=== PATIENT | male | born 1990 | race Caucasian/White ===

== ENCOUNTER 2018-02-03 18:45 | Emergency (ER) | payer BC ==
[2018-02-03] MEDS ORDERED: Oxymetazoline HCl 0.05% ( 15 ML ) ONE (18:51)
[2018-02-03] MEDS ORDERED: Amoxicillin/Potassium Clav 875 MG TAB ONE (20:13)
== END 2018-02-03 20:25 | disposition home or self-care (01) ==
LOC: BURERS 18:45
DX: R04.0 Epistaxis (principal); Z87.891 Personal history of nicotine dependence; Z79.899 Other long term (current) drug therapy; Z79.82 Long term (current) use of aspirin
CPT/HCPCS: 30903